=== PATIENT | male | born 1990 | race Caucasian/White ===

== ENCOUNTER 2024-07-08 23:36 | Emergency (ER) | payer MEDICAID ==
[~2024-07-08] VITALS: Ht 175.3 cm; Wt 74.4 kg
[2024-07-09 01:29] VITALS: BP 141/83; TEMP 98.2; O2SAT 100
[2024-07-09] MEDS ORDERED: CLIN150C16 PO (02:19)
[2024-07-09] MEDS ORDERED: CIPR500T5 PO (02:19)
[2024-07-09] MEDS ORDERED: ACETAMINOPHEN 325 MG TABLET ONE (02:28)
[2024-07-09] MEDS ORDERED: CLINDAMYCIN HCL 150 MG CAPSULE ONE (02:28)
[2024-07-09] MEDS ORDERED: CIPROFLOXACIN HCL 500 MG TABLET ONE (02:28)
[2024-07-09] MEDS: ACETAMINOPHEN 325 MG TABLET PO ONE (02:35)
[2024-07-09] MEDS: CIPROFLOXACIN HCL 250 MG TABLET PO ONE (02:35)
[2024-07-09] MEDS: CLINDAMYCIN HCL 150 MG CAPSULE PO ONE ×2 (02:35)
== END 2024-07-09 03:05 | disposition home or self-care (01) ==
LOC: ER 23:39
DX: H92.01 Otalgia, right ear (principal); Z88.1 Allergy status to other antibiotic agents; Z60.2 Problems related to living alone; Z79.899 Other long term (current) drug therapy